=== PATIENT | male | born 1965 | race African-American/Black ===

== ENCOUNTER → 2016-08-19 | Outpatient (REF) ==
--- NOTE | 2016-08-19 10:37 | REP ---
CERVICAL SPINE SERIES: Seven views. HISTORY: Degenerative disc disease. Disability. FINDINGS: Lateral views done in flexion/extension and neutral position show no subluxation or instability. Vertebral body heights are preserved. There is minimal discogenic spurring and disc space narrowing at C4-5, C5-6 and C6-7. Oblique images demonstrate intact neural foramina bilaterally at each cervical level and normally aligned facets. AP and open mouth odontoid views are unremarkable. IMPRESSION: Minimal degenerative disc changes. Signed by Antelmo De Souza MD 08/19/2016 08:09 P
== END ==
LOC: M SMT 08:35
PROVIDERS: ATTEND Internal Medicine
DX: M54.5 Low back pain (principal); Z02.71 Encounter for disability determination